=== PATIENT | female | born 1940 | race Caucasian/White ===

== ENCOUNTER 2021-02-15 17:58 | Emergency (ER) | payer MEDICARE ==
[~2021-02-15 17:58] MED LIST: KEFLEX CAP 500500 MG PO; LOPRESSOR 25 MG25 MG PO
[2021-02-15 18:38] LABS: HEMOGLOBIN 13.1 gm/dl (12.3-15.3); RED BLOOD COUNT 4.3 M/UL (4.00-5.10)
[2021-02-15 19:10] LABS: BUN/CREATININE RATIO 21 (0-10)
[2021-02-15] MEDS ORDERED: CEFUROXIME500 MG PO (23:16)
[2021-02-15] MEDS ORDERED: MOTION SICKNESS25 M2 PO (23:16)
== END 2021-02-15 23:30 | disposition home or self-care (01) ==
LOC: ER1 17:58
PROVIDERS: Physician Assistant
DX: S09.90XA Unspecified injury of head, initial encounter (principal); R42 Dizziness and giddiness; N39.0 Urinary tract infection, site not specified; R55 Syncope and collapse; E11.9 Type 2 diabetes mellitus without complications; I10 Essential (primary) hypertension; E78.5 Hyperlipidemia, unspecified; W22.8XXA Striking against or struck by other objects, initial encounter
CPT/HCPCS: 70450; 71045; 80053; 81001; 82550; 82553; 83874; 84484; 85025; 87077; 87086; 87186; 93005; 99284

== ENCOUNTER 2021-04-11 15:26 | Inpatient (IN) | payer MEDICARE ==
[~2021-04-11] VITALS: Ht 160 cm; Wt 74.8 kg
[~2021-04-11 15:26] MED LIST changes: +CEFUROXIME500 MG PO; +MOTION SICKNESS25 M2 PO
[2021-04-11 17:20] LABS: HEMOGLOBIN 13.4 gm/dl (12.3-15.3); RED BLOOD COUNT 4.45 M/UL (4.00-5.10); WHITE BLOOD COUNT 11.4 K/UL (4.5-11.0)
[2021-04-12 04:21] LABS: HEMOGLOBIN 11.8 gm/dl (12.3-15.3); WHITE BLOOD COUNT 9.8 K/UL (4.5-11.0)
[2021-04-12 04:31] LABS: RED BLOOD COUNT 3.91 M/UL (4.00-5.10)
[2021-04-12 04:51] LABS: BUN/CREATININE RATIO 22 (0-10)
[2021-04-12] MEDS ORDERED: METFORMIN HCL500 MG PO (12:33)
[2021-04-12] MEDS ORDERED: JANUVIA100 MG PO (12:33)
[2021-04-12] MEDS ORDERED: VALACYCLOVIR500 MG PO (12:35)
[2021-04-12] MEDS ORDERED: MELOXICAM7.5 MG PO (12:36)
[2021-04-12] MEDS ORDERED: GABAPENTIN300 MG PO (12:36)
[2021-04-12] MEDS ORDERED: LEXAPRO10 MG PO (12:36)
[2021-04-12] MEDS ORDERED: ATORVASTATIN CA20 MG PO (12:37)
[2021-04-12] MEDS ORDERED: DAILY VALUE1 EACH PO (12:37)
[2021-04-13 10:18] LABS: HEMOGLOBIN 11.1 gm/dl (12.3-15.3); RED BLOOD COUNT 3.75 M/UL (4.00-5.10)
[2021-04-13 10:21] LABS: WHITE BLOOD COUNT 6.7 K/UL (4.5-11.0)
[2021-04-13 11:01] LABS: BUN/CREATININE RATIO 17 (0-10)
[2021-04-14 08:53] LABS: RED BLOOD COUNT 3.71 M/UL (4.00-5.10); WHITE BLOOD COUNT 6.6 K/UL (4.5-11.0)
[2021-04-14 09:19] LABS: BUN/CREATININE RATIO 14 (0-10)
[2021-04-14] MEDS ORDERED: CEFUROXIME500 MG PO (20:06)
[2021-04-14] MEDS ORDERED: AVAPRO150 MG PO (20:18)
== END 2021-04-14 20:40 | disposition home or self-care (01) | DRG 871 ==
LOC: ER1 15:26 → CDU 19:08 → M/S 19:08
PROVIDERS: Physician Assistant Medical; ADMIT Internal Medicine
DX: A41.51 Sepsis due to Escherichia coli [E. coli] (principal); R65.21 Severe sepsis with septic shock; N30.00 Acute cystitis without hematuria; N17.9 Acute kidney failure, unspecified; M62.82 Rhabdomyolysis; Z20.822 Contact with and (suspected) exposure to COVID-19; I10 Essential (primary) hypertension; E86.0 Dehydration; E11.65 Type 2 diabetes mellitus with hyperglycemia; M19.90 Unspecified osteoarthritis, unspecified site; I48.91 Unspecified atrial fibrillation; Z79.01 Long term (current) use of anticoagulants; Z79.4 Long term (current) use of insulin
CPT/HCPCS: 36415; 71045; 76705; 80053; 81001; 82550; 82553; 83605; 83735; 83874; 84100; 84439; 84443; 84484; 85025; 85652; 86140; 87040; 87077; 87086; 87186; 93005; 99285; J0696; U0002